=== PATIENT | male | born 1995 | race Caucasian/White ===

== ENCOUNTER 2018-02-09 11:40 | Emergency (ER) | payer BC ==
--- NOTE | 2018-02-09 12:01 | EDPHY ---
H & P Time Seen by Provider: 02/09/18 11:54 HPI/ROS: CHIEF COMPLAINT: Anxiety and alcohol withdrawals HISTORY OF PRESENT ILLNESS: Patient is a 22-year-old male who see requesting information and help with outpatient alcohol withdrawal. States that he drinks up to a of 5th of alcohol daily and has for the last couple of years. States he has been having increased anxiety since he started drinking and wants to states the stop drinking. He does state that after a day or 2 of not drinking he develops tremors. He has no history of seizures from alcohol withdrawals. He denies any other drug use. He takes no prescribed medications. He has no suicidal homicidal ideation. Denies any hallucinations or diaphoresis or vomiting. REVIEW OF SYSTEMS: Constitutional: No fever, no chills. Eyes: No discharge. ENT: No sore throat. Cardiovascular: No chest pain, no palpitations. Respiratory: No cough, no shortness of breath. Gastrointestinal: No abdominal pain, no vomiting. Genitourinary: No hematuria. Musculoskeletal: No back pain. Skin: No rashes. Neurological: No headache. Smoking Status: Current every day smoker Physical Exam: General Appearance: Alert and no distress. Non diaphoretic Eyes: Pupils equal and round no injection. Respiratory: Chest is nontender, lungs are clear to auscultation. Cardiac: regular rate and rhythm. Gastrointestinal: Abdomen is soft and nontender, no masses, bowel sounds normal. Musculoskeletal: Neck is supple and nontender. Extremities have full range of motion and are nontender. Skin: No rashes or lesions. Neuro: Slight tremor to bilateral upper extremities. Cranial nerves grossly intact Constitutional: Initial Vital Signs Temperature (C) 37 C 02/09/18 11:43 Heart Rate 96 02/09/18 11:43 Respiratory Rate 18 02/09/18 11:43 Blood Pressure 161/110 H 02/09/18 11:43 O2 Sat (%) 96 02/09/18 11:43 O2 Delivery Mode Room Air Allergies/Adverse Reactions: No Known Allergies Allergy (Unverified 02/09/18 11:47) Home Medications: Medication Instructions Recorded LORazepam [Ativan (*)] 1 mg PO Q8 #10 tab 02/09/18 Magnesium Oxide [Magnesium] 800 mg PO BID 7 Days tablet 02/09/18 VYVANSE 02/09/18 Medical Decision Making ED Course/Re-evaluation: Patient here with alcohol withdrawal. His last drink was last evening. He does have a slight tremor but he is not diaphoretic and not tachycardic. Labs show low magnesium and he was started on oral magnesium replacement. A did discuss inpatient versus outpatient treatment with him and he would like to try outpatient treatment. He feels that his symptoms after resolved after 1 mg of Ativan. Will prescribe this for the next few days until located in to outpatient alcohol withdrawal treatment. I had TLC see the patient and provided with resources. Additionally he was given her PCP follow-up information. Patient is agreeable with close follow-up if he is not improving. - Data Points Laboratory Results: Laboratory Results 02/09/18 12:09 02/09/18 12:09 02/09/18 02/09/18 12: 12:09 WBC 6.61 10^3/uL 10^3/uL (3.80-9.50) RBC 5.30 10^6/uL 10^6/uL (4.40-6.38) Hgb 18.3 g/dL H g/dL (13.7-17.5) Hct 50.2 % % (40.0-51.0) MCV 94.7 fL fL (81.5-99.8) MCH 34.5 pg H pg (27.9-34.1) MCHC 36.5 g/dL g/dL (32.4-36.7) RDW 11.2 % L % (11.5-15.2) Plt Count 106 10^3/uL L 10^3/uL (150-400) MPV 10.2 fL fL (8.7-11.7) Neut % (Auto) 67.4 % % (39.3-74.2) Lymph % (Auto) 15.0 % % (15.0-45.0) [place] % (Auto) 13.8 % H % (4.5-13.0) Eos % (Auto) 2.7 % % (0.6-7.6) Baso % (Auto) 0.8 % % (0.3-1.7) Nucleat RBC Rel Count 0.0 % % (0.0-0.2) Absolute Neuts (auto) 4.46 10^3/uL 10^3/uL (1.70-6.50) Absolute Lymphs (auto) 0.99 10^3/uL L 10^3/uL (1.00-3.00) Absolute Monos (auto) 0.91 10^3/uL H 10^3/uL (0.30-0.80) Absolute Eos (auto) 0.18 10^3/uL 10^3/uL (0.03-0.40) Absolute Basos (auto) 0.05 10^3/uL 10^3/uL (0.02-0.10) Absolute Nucleated RBC 0.00 10^3/uL 10^3/uL (0-0.01) Immature Gran % 0.3 % % (0.0-1.1) Immature Gran # 0.02 10^3/uL 10^3/uL (0.00-0.10) Sodium 135 mEq/L mEq/L (135-145) Potassium 3.6 mEq/L mEq/L (3.3-5.0) Chloride 96 mEq/L L mEq/L (97-110) Carbon Dioxide 25 mEq/l mEq/l (22-31) Anion Gap 14 mEq/L mEq/L (6-14) BUN 8 mg/dL mg/dL (7-23) Creatinine 0.7 mg/dL mg/dL (0.7-1.3) Estimated GFR > 60 Glucose 128 mg/dL H mg/dL (70-100) Calcium 10.0 mg/dL mg/dL (8.5-10.4) Magnesium 1.2 mg/dL L mg/dL (1.6-2.3) Medications Given: Discontinued Medications Folic Acid (Folic Acid) 1 mg PO EDNOW ONE Stop: 02/09/18 13:23 Last Admin: 02/09/18 13:42 Dose: 1 mg Lorazepam (Ativan) 1 mg PO EDNOW ONE Stop: 02/09/18 12:31 Last Admin: 02/09/18 12:33 Dose: 1 mg Magnesium Oxide (Magnesium Oxide) 800 mg PO ONCE ONE Stop: 02/09/18 13:23 Last Admin: 02/09/18 14:00 Dose: 800 mg Thiamine HCl (Vitamin B-1) 100 mg PO EDNOW ONE Stop: 02/09/18 13:23 Last Admin: 10/12/18 13:42 Dose: 100 mg Departure - Departure Disposition: Home, Routine, Self-Care Clinical Impression: Alcoholism, Anxiety, Low magnesium level Condition: Good Instructions: Lorazepam (By mouth), Magnesium Oxide (By mouth), Alcohol Withdrawal (ED), Alcohol Dependence (ED) Additional Instructions: Take magnesium as prescribed for the next week. Recheck her magnesium levels with her primary care doctor in 1 week. Additionally contact the outpatient alcohol detox centers and follow up with them within the next 2-3 days. He developed any worsening symptoms such as tremor condom nausea, vomiting, severe sweating, hallucinations return to the ER for further treatment. Referrals: NONE *PRIMARY CARE P,. [Primary Care Provider] - As per Instructions Alvaro Parisi MD [Medical Doctor] - As per Instructions [facility],. [Clinic] - As per Instructions Prescriptions: LORazepam [Ativan (*)] 1 mg PO Q8 #10 tab Magnesium Oxide [Magnesium] 800 mg PO BID 7 Days tablet
[2018-02-09 12:29] LABS: PLATELET COUNT 106 10^3/uL (150-400)
[2018-02-09] MEDS: LORazepam 1 MG TAB PO ONE (12:33)
[2018-02-09] MEDS: FOLIC ACID 1 MG TAB PO ONE (13:42)
[2018-02-09] MEDS: THIAMINE HCL 100 MG TAB PO ONE (13:42)
[2018-02-09] MEDS: MAGNESIUM OXIDE 400 MG TAB PO ONE (14:00)
[2018-02-09 14:02] VITALS: BP 137/103
--- NOTE | 2018-02-09 14:23 | ASMTLCPROG ---
Notes Note: Notes: [facility] requested to meet with pt to discuss outpt rehab options for alcohol treatment. Complete MH evaluation was not requested. Pt presented to the ED due to tremors associated with alcohol withdrawal. Pt expressed motivation to stop drinking due to how drinking has interfered with his relationships, past employment and how it makes him feel physically. Pt denied any hx of DT's or seizures. Pt declined need or interest in inpt detox but is interested in outpt Alcohol treatment. Pt was provided with outpt referrals to 3 area programs. Pt expressed an interest in following up with one of the treatment options. He has private insurance and the facilities provided do accept private insurance. Pt also encouraged to attend AA 12 step meetings. Pt declined need for any other MH intervention. Date Signed: 02/09/2018 02:22 PM Electronically Signed By:Cristin Luu
== END 2018-02-09 14:21 | disposition home or self-care (01) ==
DX: F10.20 Alcohol dependence, uncomplicated (principal); E83.42 Hypomagnesemia; F17.210 Nicotine dependence, cigarettes, uncomplicated

== ENCOUNTER 2018-07-31 13:56 | Emergency (ER) | payer OTHER ==
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
[2018-07-31] MEDS ORDERED: TDAP ADULT 0.5 ML INJ (BOOSTRIX) IM ONE (15:03)
[2018-07-31 15:28] VITALS: BP 134/79
== END 2018-07-31 15:29 | disposition home or self-care (01) ==
DX: S50.311A Abrasion of right elbow, initial encounter (principal); M79.642 Pain in left hand; Z23 Encounter for immunization; V00.131A Fall from skateboard, initial encounter; Y93.51 Activity, roller skating (inline) and skateboarding; Y92.410 Unspecified street and highway as the place of occurrence of the external cause